=== PATIENT | female | born 1960 | race Caucasian/White ===

== ENCOUNTER 2021-11-15 19:41 | Emergency (ER) | payer OTHER ==
[~2021-11-15] VITALS: Ht 175.3 cm; Wt 135.0 kg
[2021-11-15] MEDS ORDERED: KETOROLAC TROMETH 30 MG/ML 1ML VIAL IV ONE (20:00)
[2021-11-15 20:25] LABS: Basophils # (auto) 0.1 10 ^3/uL (0-0.2); Eosinophils # (auto) 0.1 10 ^3/uL (0-0.8); Hemoglobin 10.6 g/dL (12.2-16.2); Lymphocytes # (auto) 1.5 10 ^3/uL (0.4-5.4); Mean Corpuscular Hgb Conc. 31.3 g/dL (32.0-36.0); Monocytes # (auto) 1.5 10 ^3/uL (0-1.3); Red Cell Distribution Width 16.8 % (11.8-14.3)
[2021-11-15 20:26] LABS: Basophils % (auto) 0.8 % (0.0-2.0); Lymphocytes % (auto) 11.7 % (10.0-50.0); Mean Corpuscular Hemoglobin 26.9 pg (28.0-32.0); Mean Corpuscular Volume 85.7 fL (80.0-100.0); Monocytes % (auto) 11.7 % (0.0-12.0); Neutrophils # (auto) 9.8 10 ^3/uL (1.6-8.6); Neutrophils % (auto) 74.8 % (37.0-80.0); Red Blood Cells 3.96 10^6/uL (4.0-5.20); White Blood Cell 13.1 10^3/uL (4.4-10.8)
[2021-11-15 20:40] LABS: INR 1.04 (0.9-1.15); Partial Thromboplastin Time 28.8 sec (24.6-33.4)
[2021-11-15 20:41] LABS: Albumin 2.2 g/dL (3.4-5.0); BUN/Creatinine Ratio 11.1; Magnesium 2.2 mg/dL (1.6-2.6); Potassium 5.5 mmol/L (3.5-5.1)
[2021-11-15 20:44] LABS: Bilirubin, Total 0.3 mg/dL (0.2-1.0); Total Protein 6.8 g/dL (6.4-8.2)
[2021-11-15] MEDS ORDERED: NAPROXEN 500 MG TAB PO SCH (22:00)
[2021-11-15 22:03] VITALS: BP 138/63
== END 2021-11-15 23:29 | disposition home or self-care (01) ==
LOC: ER 19:41 → EDBD 19:41 → ER 23:29
DX: R07.89 Other chest pain (principal); I10 Essential (primary) hypertension; E11.9 Type 2 diabetes mellitus without complications; I48.91 Unspecified atrial fibrillation; F17.210 Nicotine dependence, cigarettes, uncomplicated; Z90.89 Acquired absence of other organs
CPT/HCPCS: 36415; 71045; 80053; 83735; 83880; 84484; 85025; 85610; 85730; 93005; 96374; 99285; J1885

== ENCOUNTER 2021-11-17 19:00 | Emergency (ER) | payer OTHER ==
[2021-11-17 19:49] LABS: Basophils # (auto) 0.1 10 ^3/uL (0-0.2); Basophils % (auto) 0.7 % (0.0-2.0); Eosinophils # (auto) 0.2 10 ^3/uL (0-0.8); Eosinophils % (auto) 1.8 % (0.0-7.0); Hematocrit 31.7 % (36.0-46.0); Hemoglobin 10.2 g/dL (12.2-16.2); Lymphocytes % (auto) 16.5 % (10.0-50.0); Mean Corpuscular Hemoglobin 27.4 pg (28.0-32.0); Mean Corpuscular Hgb Conc. 32.2 g/dL (32.0-36.0); Mean Corpuscular Volume 85.2 fL (80.0-100.0); Monocytes # (auto) 1.2 10 ^3/uL (0-1.3); Monocytes % (auto) 9.9 % (0.0-12.0); Neutrophils # (auto) 8.4 10 ^3/uL (1.6-8.6); Neutrophils % (auto) 71.1 % (37.0-80.0); Red Blood Cells 3.72 10^6/uL (4.0-5.20); Red Cell Distribution Width 17.2 % (11.8-14.3); White Blood Cell 11.9 10^3/uL (4.4-10.8)
[2021-11-17 20:07] LABS: Calcium 8.4 mg/dL (8.5-10.1); Potassium 4.7 mmol/L (3.5-5.1)
[2021-11-17 20:16] LABS: BUN/Creatinine Ratio 13.7; Bilirubin, Total 0.3 mg/dL (0.2-1.0)
[2021-11-17] MEDS ORDERED: IOHEXOL 300 MG/ML 100ML BOTTLE IJ ONE (22:26)
[2021-11-18 08:27] VITALS: BP 146/62
== END 2021-11-18 08:36 | disposition short-term general hospital (02) ==
LOC: EDBD 19:00 → ER 19:00
DX: R07.89 Other chest pain (principal); I31.9 Disease of pericardium, unspecified; A04.71 Enterocolitis due to Clostridium difficile, recurrent; R16.0 Hepatomegaly, not elsewhere classified; K80.20 Calculus of gallbladder without cholecystitis without obstruction; R91.8 Other nonspecific abnormal finding of lung field; F17.210 Nicotine dependence, cigarettes, uncomplicated; E11.9 Type 2 diabetes mellitus without complications; I10 Essential (primary) hypertension; I48.91 Unspecified atrial fibrillation; Z90.710 Acquired absence of both cervix and uterus; Z90.89 Acquired absence of other organs
CPT/HCPCS: 36415; 71045; 74177; 80053; 82962; 83690; 83880; 84484; 85025; 93005; 99285; Q9967

== ENCOUNTER 2022-04-27 17:56 | Emergency (ER) | payer OTHER ==
[~2022-04-27] VITALS: Ht 175.3 cm; Wt 60.4 kg
[2022-04-27 20:38] LABS: Basophils # (auto) 0.1 10 ^3/uL (0-0.2); Basophils % (auto) 0.5 % (0.0-2.0); Eosinophils # (auto) 0.6 10 ^3/uL (0-0.8); Eosinophils % (auto) 4.1 % (0.0-7.0); Hematocrit 42.9 % (36.0-46.0); Hemoglobin 13.8 g/dL (12.2-16.2); Lymphocytes # (auto) 1.4 10 ^3/uL (0.4-5.4); Lymphocytes % (auto) 9.8 % (10.0-50.0); Mean Corpuscular Hemoglobin 28.1 pg (28.0-32.0); Mean Corpuscular Hgb Conc. 32.2 g/dL (32.0-36.0); Mean Corpuscular Volume 87.3 fL (80.0-100.0); Monocytes # (auto) 0.9 10 ^3/uL (0-1.3); Monocytes % (auto) 6.1 % (0.0-12.0); Neutrophils # (auto) 11.6 10 ^3/uL (1.6-8.6); Neutrophils % (auto) 79.5 % (37.0-80.0); Nucleated Red Blood Cells % 0.1 %; Red Blood Cells 4.91 10^6/uL (4.0-5.20); Red Cell Distribution Width 16.4 % (11.8-14.3); White Blood Cell 14.6 10^3/uL (4.4-10.8)
[2022-04-27 20:56] LABS: INR 1.02 (0.9-1.15)
[2022-04-27 21:01] LABS: Albumin 3.5 g/dL (3.4-5.0); Anion Gap 9 (5-15); Blood Urea Nitrogen 14 mg/dL (7-18); Calcium 8.5 mg/dL (8.5-10.1); Carbon Dioxide 27 mmol/L (21-32); Chloride 104 mmol/L (98-107); Glucose 78 mg/dL (74-106); Magnesium 2.3 mg/dL (1.6-2.6); Potassium 4.4 mmol/L (3.5-5.1); Sodium 140 mmol/L (136-145)
[2022-04-27 21:03] LABS: Alanine Aminotransferase 22 U/L (13-56); BUN/Creatinine Ratio 16.5; GFR African American 87 mL/min; GFR Non-African American 72 mL/min
[2022-04-27 21:09] LABS: Alkaline Phosphatase 94 U/L (45-117); Aspartate Aminotransferase 11 U/L (15-37); Bilirubin, Total 0.5 mg/dL (0.2-1.0); Total Protein 7.1 g/dL (6.4-8.2)
[2022-04-27] MEDS ORDERED: ALBUTEROL SULF 2.5 MG/0.5ML(0.5%) NEB SOLN NEB ONE (22:00)
[2022-04-28 03:26] LABS: Urine Bacteria FEW /hpf (None Seen); Urine Blood Negative /uL (Negative); Urine Mucus FEW (None Seen); Urine Specific Gravity 1.022 (1.001-1.035); Urine WBC 1 /hpf (0 - 5)
[2022-04-28] MEDS ORDERED: AZITHROMYCIN 500MG/ 250ML 250 ML IV ONE (04:15)
[2022-04-28] MEDS ORDERED: DexAMETHasone SOD PHOS 10MG/1ML VIAL INJ IV ONE (04:15)
[2022-04-28] MEDS ORDERED: LACTATED RINGER'S 1,000 ML IV ONE (04:15)
[2022-04-28] MEDS ORDERED: cefTRIAXone 1GM/50ML D5W 50 ML IV ONE (04:15)
[2022-04-28 12:01] VITALS: BP 150/63
== END 2022-04-28 12:50 | disposition short-term general hospital (02) ==
LOC: EDBD 17:56 → ER 18:02
DX: J18.9 Pneumonia, unspecified organism (principal); R53.1 Weakness; R06.02 Shortness of breath; R05.9 Cough, unspecified; D72.829 Elevated white blood cell count, unspecified; R09.02 Hypoxemia; I10 Essential (primary) hypertension; E11.9 Type 2 diabetes mellitus without complications; I48.91 Unspecified atrial fibrillation; F17.210 Nicotine dependence, cigarettes, uncomplicated; Z90.89 Acquired absence of other organs; Z90.710 Acquired absence of both cervix and uterus; Z20.822 Contact with and (suspected) exposure to COVID-19
CPT/HCPCS: 36415; 71045; 80053; 81001; 83735; 83880; 84484; 85025; 85610; 85730; 87426; 87804; 93005; 94640; 96365; 96366; 96367; 96375; 99285; J0456; J0696; J1100

== ENCOUNTER 2023-01-09 13:10 | Inpatient (IN) | payer OTHER ==
[2023-01-09] VITALS (8 sets, daily range): BP systolic 119–152; BP diastolic 68–86; PULSE 101–112; RESP 12–20; TEMP 98–98.2; O2SAT 100
[~2023-01-09] VITALS: Ht 175.3 cm; Wt 134.3 kg
[2023-01-09 13:59] LABS: Basophils # (auto) 0.1 10 ^3/uL (0-0.2); Lymphocytes # (auto) 2.2 10 ^3/uL (0.4-5.4); Neutrophils # (auto) 10.1 10 ^3/uL (1.6-8.6)
[2023-01-09 14:01] LABS: Basophils % (auto) 0.9 % (0.0-2.0); Eosinophils # (auto) 0.3 10 ^3/uL (0-0.8); Hematocrit 22.5 % (36.0-46.0); Lymphocytes % (auto) 15.9 % (10.0-50.0); Mean Corpuscular Hemoglobin 25.3 pg (28.0-32.0); Mean Corpuscular Hgb Conc. 31.2 g/dL (32.0-36.0); Mean Corpuscular Volume 80.9 fL (80.0-100.0); Monocytes # (auto) 0.9 10 ^3/uL (0-1.3); Monocytes % (auto) 6.7 % (0.0-12.0); Neutrophils % (auto) 74.5 % (37.0-80.0); Nucleated Red Blood Cells % 0.1 %; Red Blood Cells 2.78 10^6/uL (4.0-5.20); White Blood Cell 13.6 10^3/uL (4.4-10.8)
[2023-01-09 14:14] LABS: INR 1.89 (0.9-1.15)
[2023-01-09 14:46] LABS: Alanine Aminotransferase 10 U/L (7-40); Albumin 3.4 g/dL (3.2-4.8); Alkaline Phosphatase 61 U/L (46-116); Anion Gap 7.3 (5-15); Aspartate Aminotransferase < 8 U/L (13-40); BUN/Creatinine Ratio 31.4 (10.0-20.0); Bilirubin, Total 0.3 mg/dL (0.2-1.0); Blood Urea Nitrogen 27 mg/dL (9-23); Calcium 8.1 mg/dL (8.5-10.1); Carbon Dioxide 22.7 mmol/L (20-30); Chloride 107 mmol/L (98-107); Glucose 209 mg/dL (74-106); Potassium 4.2 mmol/L (3.5-5.1); Sodium 137 mmol/L (136-145)
[2023-01-09 14:47] LABS: Total Protein 5.1 g/dL (5.7-8.2)
[2023-01-09] MEDS ORDERED: PANTOPRAZOLE 80 MG in SODIUM CHL 0.9% 100 ML IV ONE (15:15)
[2023-01-09] MEDS ORDERED: OCTREOTIDE ACETATE 100 MCG in SODIUM CHL 0.9% 50 ML IV ONE (15:15)
[2023-01-09] MEDS ORDERED: PANTOPRAZOLE 40mg/50ML NS AE 50 ML IV ONE (15:15)
[2023-01-09] MEDS ORDERED: DABI150C5 PO (16:00)
[2023-01-09] MEDS ORDERED: PANTOPRAZOLE 40mg/50ML NS AE 50 ML IV SCH (16:00)
[2023-01-09] MEDS ORDERED: ACETAMINOPHEN 325 MG TAB PO PRN (16:00)
[2023-01-09] MEDS ORDERED: SEMA4INJ SC (16:00)
[2023-01-09] MEDS ORDERED: cefTRIAXone 1GM/50ML D5W 50 ML IV ONE (16:00)
[2023-01-09] MEDS ORDERED: ROSU1TAB14 PO (16:00)
[2023-01-09] MEDS ORDERED: HYDR25TA87 PO (16:00)
[2023-01-09] MEDS ORDERED: OCTREOTIDE ACETATE 500 MCG in SODIUM CHL 0.9% 99 ML IV SCH (16:00)
[2023-01-09] MEDS ORDERED: MORPHINE SULFATE INJ 2 MG/ml SYRG IV PRN (16:00)
[2023-01-09] MEDS ORDERED: INSREG3 (16:00)
[2023-01-09] MEDS ORDERED: LOSA50TA46 PO (16:00)
[2023-01-09] MEDS ORDERED: METH5TAB98 PO (16:00)
[2023-01-09] MEDS ORDERED: METF-370 PO (16:00)
[2023-01-09] MEDS ORDERED: NITROGLYCERIN 0.4 MG SL TAB SL PRN (16:00)
[2023-01-09] MEDS ORDERED: DILT-29 PO (16:00)
[2023-01-09 16:24] LABS: Triglycerides 104 mg/dL (< 150)
[2023-01-09 16:25] LABS: LDL Cholesterol 35 mg/dL (< 100)
[2023-01-09 16:26] LABS: Cholesterol 91 mg/dL (< 200); HDL Cholesterol 32 mg/dL (40-59)
[2023-01-09] MEDS: OCTREOTIDE ACETATE 500 MCG in SODIUM CHL 0.9% 99 ML IV SCH (16:28)
[2023-01-09] MEDS: SODIUM CHLORIDE 0.9% 1,000 ML IV SCH (16:34)
[2023-01-09] MEDS ORDERED: ONDANSETRON HCL 4 MG/2 ML VIAL ONE (16:41)
[2023-01-09] MEDS ORDERED: ONDANSETRON HCL 4 MG/2 ML VIAL IV ONE (16:45)
[2023-01-09] MEDS: metFORMIN HYDROCHLORIDE 500 MG TAB PO SCH (18:00)
[2023-01-09 21:49] LABS: COVID19 ANTIGEN SOFIA FIA NEGATIVE (NEGATIVE)
[2023-01-09] MEDS: LOSARTAN POTASSIUM 50 MG TAB PO SCH (23:03)
[2023-01-09] MEDS: ATORVASTATIN 20 MG TAB PO SCH (23:03)
[2023-01-10] VITALS (8 sets, daily range): BP systolic 123–150; BP diastolic 65–80; PULSE 77–117; RESP 16–22; TEMP 97.7–98.2; O2SAT 91–100
[2023-01-10 01:04] LABS: Basophils # (auto) 0.1 10 ^3/uL (0-0.2); Basophils % (auto) 0.7 % (0.0-2.0); Eosinophils # (auto) 0.3 10 ^3/uL (0-0.8); Lymphocytes # (auto) 3.1 10 ^3/uL (0.4-5.4); Nucleated Red Blood Cells % 0.1 %; Red Cell Distribution Width 17.3 % (11.8-14.3)
[2023-01-10 01:06] LABS: Eosinophils % (auto) 2.1 % (0.0-7.0); Hematocrit 25.5 % (36.0-46.0); Mean Corpuscular Hemoglobin 25.5 pg (28.0-32.0); Mean Corpuscular Hgb Conc. 31.3 g/dL (32.0-36.0); Mean Corpuscular Volume 81.4 fL (80.0-100.0); Monocytes # (auto) 1.1 10 ^3/uL (0-1.3); Monocytes % (auto) 7.7 % (0.0-12.0); Neutrophils # (auto) 9.5 10 ^3/uL (1.6-8.6); Neutrophils % (auto) 67.5 % (37.0-80.0); Red Blood Cells 3.13 10^6/uL (4.0-5.20)
[2023-01-10] MEDS: OCTREOTIDE ACETATE 500 MCG in SODIUM CHL 0.9% 99 ML IV SCH ×3 (01:15→21:15)
[2023-01-10] MEDS: SODIUM CHLORIDE 0.9% 1,000 ML IV SCH (02:27)
[2023-01-10] MEDS ORDERED: DEXTROSE (50%) 50ML SYRG IV PRN (03:00)
[2023-01-10] MEDS ORDERED: OCTREOTIDE ACETATE 500 MCG/ML VL ONE (03:13)
[2023-01-10 06:02] LABS: Basophils # (auto) 0.1 10 ^3/uL (0-0.2); Basophils % (auto) 0.7 % (0.0-2.0); Eosinophils # (auto) 0.4 10 ^3/uL (0-0.8); Eosinophils % (auto) 3.4 % (0.0-7.0); Hematocrit 24.8 % (36.0-46.0); Hemoglobin 7.7 g/dL (12.2-16.2); Lymphocytes # (auto) 2.6 10 ^3/uL (0.4-5.4); Lymphocytes % (auto) 21.9 % (10.0-50.0); Mean Corpuscular Hemoglobin 24.6 pg (28.0-32.0); Mean Corpuscular Hgb Conc. 31.1 g/dL (32.0-36.0); Mean Corpuscular Volume 79.1 fL (80.0-100.0); Monocytes % (auto) 8.5 % (0.0-12.0); Neutrophils # (auto) 7.9 10 ^3/uL (1.6-8.6); Neutrophils % (auto) 65.5 % (37.0-80.0); Nucleated Red Blood Cells % 0.2 %; Red Blood Cells 3.14 10^6/uL (4.0-5.20); Red Cell Distribution Width 17.8 % (11.8-14.3)
[2023-01-10] MEDS: metFORMIN HYDROCHLORIDE 500 MG TAB PO SCH ×2 (06:40→17:31)
[2023-01-10] MEDS: ACCU-CHEK COMFORT CURVE STRIP VI SCH ×4 (06:40→21:31)
[2023-01-10] MEDS ORDERED: InsuLIN REG 1unit/0.01ml Soln (100units/ml) SC SCH ×2 (07:00→22:00)
[2023-01-10 08:38] LABS: Albumin 3.4 g/dL (3.2-4.8); Alkaline Phosphatase 57 U/L (46-116); Anion Gap 6.5 (5-15); Aspartate Aminotransferase 9 U/L (13-40); BUN/Creatinine Ratio 23.3 (10.0-20.0); Bilirubin, Total 0.4 mg/dL (0.2-1.0); Blood Urea Nitrogen 20 mg/dL (9-23); Calcium 8.2 mg/dL (8.5-10.1); Carbon Dioxide 24.5 mmol/L (20-30); Chloride 107 mmol/L (98-107); Glucose 161 mg/dL (74-106); Potassium 4.4 mmol/L (3.5-5.1); Sodium 138 mmol/L (136-145); Total Protein 5.5 g/dL (5.7-8.2)
[2023-01-10 08:40] LABS: Alanine Aminotransferase < 9 U/L (7-40)
[2023-01-10] MEDS: cefTRIAXone 1GM/50ML D5W 50 ML IV SCH (09:07)
[2023-01-10] MEDS ORDERED: methIMAzole 5 MG TAB PO SCH (10:00)
[2023-01-10] MEDS: dilTIAZem 120MG ER CAP PO SCH (10:42)
[2023-01-10] MEDS: LOSARTAN POTASSIUM 50 MG TAB PO SCH ×2 (10:43→21:16)
[2023-01-10 12:14] LABS: Basophils # (auto) 0 10 ^3/uL (0-0.2); Basophils % (auto) 0.4 % (0.0-2.0); Eosinophils # (auto) 0.4 10 ^3/uL (0-0.8); Eosinophils % (auto) 3.4 % (0.0-7.0); Hemoglobin 8.4 g/dL (12.2-16.2); Lymphocytes # (auto) 1.8 10 ^3/uL (0.4-5.4); Lymphocytes % (auto) 15.4 % (10.0-50.0); Mean Corpuscular Hemoglobin 24.8 pg (28.0-32.0); Mean Corpuscular Volume 82.9 fL (80.0-100.0); Monocytes % (auto) 8.2 % (0.0-12.0); Neutrophils # (auto) 8.6 10 ^3/uL (1.6-8.6); Neutrophils % (auto) 72.6 % (37.0-80.0); Red Blood Cells 3.38 10^6/uL (4.0-5.20); Red Cell Distribution Width 17.6 % (11.8-14.3); White Blood Cell 11.8 10^3/uL (4.4-10.8)
[2023-01-10] MEDS: InsuLIN REG 1unit/0.01ml Soln (100units/ml) SC SCH ×3 (13:37→21:29)
[2023-01-10 18:29] LABS: Basophils # (auto) 0.1 10 ^3/uL (0-0.2); Basophils % (auto) 0.6 % (0.0-2.0); Eosinophils # (auto) 0.4 10 ^3/uL (0-0.8); Hematocrit 24.8 % (36.0-46.0); Hemoglobin 7.8 g/dL (12.2-16.2); Lymphocytes # (auto) 1.9 10 ^3/uL (0.4-5.4); Monocytes # (auto) 0.9 10 ^3/uL (0-1.3); Neutrophils # (auto) 8.3 10 ^3/uL (1.6-8.6); White Blood Cell 11.6 10^3/uL (4.4-10.8)
[2023-01-10 18:31] LABS: Eosinophils % (auto) 3.2 % (0.0-7.0); Lymphocytes % (auto) 16.7 % (10.0-50.0); Mean Corpuscular Hemoglobin 25.3 pg (28.0-32.0); Mean Corpuscular Hgb Conc. 31.2 g/dL (32.0-36.0); Monocytes % (auto) 7.8 % (0.0-12.0); Neutrophils % (auto) 71.7 % (37.0-80.0); Nucleated Red Blood Cells % 0.2 %; Red Blood Cells 3.07 10^6/uL (4.0-5.20); Red Cell Distribution Width 17.1 % (11.8-14.3)
[2023-01-10] MEDS: ATORVASTATIN 20 MG TAB PO SCH (21:16)
[2023-01-11] VITALS (10 sets, daily range): BP systolic 96–165; BP diastolic 45–78; PULSE 99–110; RESP 16–22; TEMP 97.5–98.5; O2SAT 95–100
[2023-01-11] MEDS: SODIUM CHLORIDE 0.9% 1,000 ML IV SCH ×2 (02:40→18:00)
[2023-01-11] MEDS: metFORMIN HYDROCHLORIDE 500 MG TAB PO SCH (05:51)
[2023-01-11] MEDS: ACCU-CHEK COMFORT CURVE STRIP VI SCH ×4 (05:52→21:43)
[2023-01-11] MEDS: InsuLIN REG 1unit/0.01ml Soln (100units/ml) SC SCH ×4 (05:56→21:42)
[2023-01-11 06:03] LABS: Basophils # (auto) 0.1 10 ^3/uL (0-0.2); Hemoglobin 7.3 g/dL (12.2-16.2); Monocytes # (auto) 0.8 10 ^3/uL (0-1.3)
[2023-01-11 06:06] LABS: Basophils % (auto) 0.6 % (0.0-2.0); Eosinophils # (auto) 0.4 10 ^3/uL (0-0.8); Hematocrit 22.8 % (36.0-46.0); Lymphocytes # (auto) 1.6 10 ^3/uL (0.4-5.4); Lymphocytes % (auto) 16.2 % (10.0-50.0); Mean Corpuscular Hemoglobin 25.4 pg (28.0-32.0); Mean Corpuscular Hgb Conc. 31.8 g/dL (32.0-36.0); Mean Corpuscular Volume 79.9 fL (80.0-100.0); Monocytes % (auto) 8.3 % (0.0-12.0); Neutrophils # (auto) 7.2 10 ^3/uL (1.6-8.6); Neutrophils % (auto) 70.9 % (37.0-80.0); Red Blood Cells 2.86 10^6/uL (4.0-5.20); Red Cell Distribution Width 16.9 % (11.8-14.3); White Blood Cell 10.1 10^3/uL (4.4-10.8)
[2023-01-11] MEDS: OCTREOTIDE ACETATE 500 MCG in SODIUM CHL 0.9% 99 ML IV SCH (08:28)
[2023-01-11] MEDS: cefTRIAXone 1GM/50ML D5W 50 ML IV SCH (08:31)
[2023-01-11 10:06] LABS: Anion Gap 6.6 (5-15); Carbon Dioxide 27.4 mmol/L (20-30); Chloride 105 mmol/L (98-107); Potassium 4.5 mmol/L (3.5-5.1); Sodium 139 mmol/L (136-145)
[2023-01-11 10:08] LABS: Calcium 8.4 mg/dL (8.5-10.1)
[2023-01-11 10:12] LABS: BUN/Creatinine Ratio 21.1 (10.0-20.0); Blood Urea Nitrogen 16 mg/dL (9-23); Glucose 202 mg/dL (74-106)
[2023-01-11] MEDS: dilTIAZem 120MG ER CAP PO SCH (10:23)
[2023-01-11] MEDS: LOSARTAN POTASSIUM 50 MG TAB PO SCH (10:24)
[2023-01-11] MEDS ORDERED: IRON SUCROSE COMPLEX 200 MG in SODIUM CHL 0.9% 100 ML IV SCH (12:00)
[2023-01-11] MEDS ORDERED: LABETALOL HCL 5 MG/ML 4ML SYRINGE IV PRN (12:15)
[2023-01-11] MEDS: SODIUM FERR GLUC 62.5MG/5ML 125 MG in SODIUM CHL 0.9% 100 ML IV SCH (12:45)
[2023-01-11] MEDS: metroNIDAZOLE 500MG/100ML 100 ML IV SCH ×2 (14:00→21:26)
[2023-01-11] MEDS ORDERED: PROPOFOL 10 MG/ML 20 ML IV ONE (14:41)
[2023-01-11 16:37] LABS: Urine Bacteria NONE SEEN /hpf (None Seen); Urine Blood Negative /uL (Negative); Urine Clarity Clear (Clear); Urine Color Colorless (Yellow); Urine Protein, UAD Negative (Negative); Urine Specific Gravity 1.016 (1.001-1.035); Urine Urobilinogen Normal (Negative); Urine WBC <1 /hpf (0 - 5)
[2023-01-11 16:41] LABS: Basophils # (auto) 0.1 10 ^3/uL (0-0.2); Hemoglobin 7.2 g/dL (12.2-16.2); Monocytes # (auto) 0.9 10 ^3/uL (0-1.3); Nucleated Red Blood Cells % 0.1 %; White Blood Cell 10.6 10^3/uL (4.4-10.8)
[2023-01-11 16:43] LABS: Basophils % (auto) 0.8 % (0.0-2.0); Eosinophils # (auto) 0.3 10 ^3/uL (0-0.8); Lymphocytes # (auto) 1.6 10 ^3/uL (0.4-5.4); Lymphocytes % (auto) 15.5 % (10.0-50.0); Mean Corpuscular Hemoglobin 26.3 pg (28.0-32.0); Mean Corpuscular Hgb Conc. 32.7 g/dL (32.0-36.0); Mean Corpuscular Volume 80.7 fL (80.0-100.0); Monocytes % (auto) 8.6 % (0.0-12.0); Neutrophils # (auto) 7.7 10 ^3/uL (1.6-8.6); Neutrophils % (auto) 72.1 % (37.0-80.0); Red Blood Cells 2.72 10^6/uL (4.0-5.20); Red Cell Distribution Width 17.4 % (11.8-14.3)
[2023-01-11 17:23] LABS: T3 Total 0.79 ng/mL (0.60-1.81)
[2023-01-11 17:24] LABS: Free T4 (Free Thyroxine) 0.93 ng/dL (0.89-1.76)
[2023-01-11 21:05] LABS: Hemoglobin 6.6 g/dL (12.2-16.2)
[2023-01-11] MEDS: ATORVASTATIN 20 MG TAB PO SCH (21:26)
[2023-01-11] MEDS: PANTOPRAZOLE 40 MG/10 ML VIAL INJ IV SCH (21:26)
[2023-01-12] VITALS (8 sets, daily range): BP systolic 139–157; BP diastolic 71–82; PULSE 97–123; RESP 17–20; TEMP 97.4–98.2; O2SAT 94–98
[2023-01-12] MEDS: metroNIDAZOLE 500MG/100ML 100 ML IV SCH ×3 (05:26→22:15)
[2023-01-12] MEDS: InsuLIN REG 1unit/0.01ml Soln (100units/ml) SC SCH ×4 (06:01→22:13)
[2023-01-12] MEDS: ACCU-CHEK COMFORT CURVE STRIP VI SCH ×4 (06:02→22:12)
[2023-01-12 06:12] LABS: Eosinophils # (auto) 0.3 10 ^3/uL (0-0.8); Lymphocytes # (auto) 1.5 10 ^3/uL (0.4-5.4); Monocytes # (auto) 0.8 10 ^3/uL (0-1.3); Neutrophils # (auto) 6.2 10 ^3/uL (1.6-8.6); White Blood Cell 8.8 10^3/uL (4.4-10.8)
[2023-01-12 06:14] LABS: Basophils # (auto) 0.1 10 ^3/uL (0-0.2); Basophils % (auto) 0.6 % (0.0-2.0); Eosinophils % (auto) 3.6 % (0.0-7.0); Hematocrit 23.9 % (36.0-46.0); Hemoglobin 7.9 g/dL (12.2-16.2); Lymphocytes % (auto) 16.5 % (10.0-50.0); Mean Corpuscular Hemoglobin 27.4 pg (28.0-32.0); Mean Corpuscular Hgb Conc. 33.2 g/dL (32.0-36.0); Mean Corpuscular Volume 82.6 fL (80.0-100.0); Monocytes % (auto) 8.8 % (0.0-12.0); Neutrophils % (auto) 70.5 % (37.0-80.0); Nucleated Red Blood Cells % 0.2 %; Red Blood Cells 2.89 10^6/uL (4.0-5.20)
[2023-01-12 06:27] LABS: Albumin 3.5 g/dL (3.2-4.8); Alkaline Phosphatase 63 U/L (46-116); BUN/Creatinine Ratio 15.1 (10.0-20.0); Bilirubin, Total 0.5 mg/dL (0.2-1.0); Blood Urea Nitrogen 13 mg/dL (9-23); Calcium 8.3 mg/dL (8.5-10.1); Chloride 105 mmol/L (98-107); Glucose 210 mg/dL (74-106); Potassium 4.1 mmol/L (3.5-5.1); Sodium 138 mmol/L (136-145); Total Protein 5.6 g/dL (5.7-8.2)
[2023-01-12 06:36] LABS: Alanine Aminotransferase < 9 U/L (7-40); Aspartate Aminotransferase < 8 U/L (13-40)
[2023-01-12 06:54] LABS: Anion Gap 6.3 (5-15); Carbon Dioxide 26.7 mmol/L (20-30)
[2023-01-12] MEDS: cefTRIAXone 1GM/50ML D5W 50 ML IV SCH (09:12)
[2023-01-12] MEDS: DOCUSATE SOD 100 MG CAP PO SCH ×3 (09:12→22:15)
[2023-01-12] MEDS: dilTIAZem 120MG ER CAP PO SCH (09:13)
[2023-01-12] MEDS: LOSARTAN POTASSIUM 50 MG TAB PO SCH (09:13)
[2023-01-12] MEDS: PANTOPRAZOLE 40 MG/10 ML VIAL INJ IV SCH ×2 (09:13→22:15)
[2023-01-12] MEDS: SODIUM CHLORIDE 0.9% 1,000 ML IV SCH (09:15)
[2023-01-12] MEDS: SODIUM FERR GLUC 62.5MG/5ML 125 MG in SODIUM CHL 0.9% 100 ML IV SCH (12:45)
[2023-01-12] MEDS: ATORVASTATIN 20 MG TAB PO SCH (22:15)
[2023-01-13] VITALS (8 sets, daily range): BP systolic 133–147; BP diastolic 47–89; PULSE 105–133; RESP 19–22; TEMP 97.6–98.4; O2SAT 95–99
[2023-01-13] MEDS: SODIUM CHLORIDE 0.9% 1,000 ML IV SCH ×2 (03:20→20:00)
[2023-01-13] MEDS: metroNIDAZOLE 500MG/100ML 100 ML IV SCH ×3 (06:39→21:59)
[2023-01-13] MEDS: InsuLIN REG 1unit/0.01ml Soln (100units/ml) SC SCH ×4 (06:43→22:14)
[2023-01-13] MEDS: ACCU-CHEK COMFORT CURVE STRIP VI SCH ×4 (06:43→22:08)
[2023-01-13 06:59] LABS: Basophils # (auto) 0.1 10 ^3/uL (0-0.2); Basophils % (auto) 0.9 % (0.0-2.0); Eosinophils # (auto) 0.3 10 ^3/uL (0-0.8); Eosinophils % (auto) 3.4 % (0.0-7.0); Hematocrit 25.3 % (36.0-46.0); Hemoglobin 8.3 g/dL (12.2-16.2); Lymphocytes # (auto) 1.4 10 ^3/uL (0.4-5.4); Lymphocytes % (auto) 15.6 % (10.0-50.0); Mean Corpuscular Hgb Conc. 32.8 g/dL (32.0-36.0); Mean Corpuscular Volume 82.1 fL (80.0-100.0); Monocytes # (auto) 0.8 10 ^3/uL (0-1.3); Neutrophils # (auto) 6.5 10 ^3/uL (1.6-8.6); Neutrophils % (auto) 71.1 % (37.0-80.0); Nucleated Red Blood Cells % 0.1 %; Red Blood Cells 3.08 10^6/uL (4.0-5.20); Red Cell Distribution Width 16.9 % (11.8-14.3); White Blood Cell 9.2 10^3/uL (4.4-10.8)
[2023-01-13 07:18] LABS: Albumin 3.6 g/dL (3.2-4.8); Alkaline Phosphatase 67 U/L (46-116); Anion Gap 4.6 (5-15); Aspartate Aminotransferase < 8 U/L (13-40); BUN/Creatinine Ratio 12.5 (10.0-20.0); Bilirubin, Total 0.5 mg/dL (0.2-1.0); Blood Urea Nitrogen 10 mg/dL (9-23); Calcium 8.4 mg/dL (8.5-10.1); Carbon Dioxide 28.4 mmol/L (20-30); Chloride 106 mmol/L (98-107); Glucose 236 mg/dL (74-106); Potassium 3.6 mmol/L (3.5-5.1); Sodium 139 mmol/L (136-145); Total Protein 5.9 g/dL (5.7-8.2)
[2023-01-13 07:37] LABS: Alanine Aminotransferase < 9 U/L (7-40)
[2023-01-13] MEDS: cefTRIAXone 1GM/50ML D5W 50 ML IV SCH (09:07)
[2023-01-13] MEDS: PANTOPRAZOLE 40 MG/10 ML VIAL INJ IV SCH ×2 (09:15→21:59)
[2023-01-13] MEDS: dilTIAZem 120MG ER CAP PO SCH (09:15)
[2023-01-13] MEDS: DOCUSATE SOD 100 MG CAP PO SCH ×2 (09:16→21:59)
[2023-01-13] MEDS: LOSARTAN POTASSIUM 50 MG TAB PO SCH (09:16)
[2023-01-13] MEDS: SODIUM FERR GLUC 62.5MG/5ML 125 MG in SODIUM CHL 0.9% 100 ML IV SCH (12:33)
[2023-01-13] MEDS: ATORVASTATIN 20 MG TAB PO SCH (21:59)
[2023-01-13] MEDS ORDERED: INSULIN LANTUS (GLARGINE) 1 /0.01ml (100units/ml) SC SCH (22:00)
== END 2023-01-13 22:30 | disposition short-term general hospital (02) | DRG 378 ==
LOC: EDBD 13:10 → ER 13:10 → TELE 15:58 → TELE-WESTW 21:23
PROVIDERS: ADMIT Internal Medicine
PROC: 30233N1 Transfusion of Nonautologous Red Blood Cells into Peripheral Vein, Percutaneous Approach (ICD-10-PCS; principal; 2023-01-09)
PROC: 30233K1 Transfusion of Nonautologous Frozen Plasma into Peripheral Vein, Percutaneous Approach (ICD-10-PCS; 2023-01-11)
PROC: 0DB98ZX Excision of Duodenum, Via Natural or Artificial Opening Endoscopic, Diagnostic (ICD-10-PCS; 2023-01-11)
PROC: 0DB68ZX Excision of Stomach, Via Natural or Artificial Opening Endoscopic, Diagnostic (ICD-10-PCS; 2023-01-11)
PROC: 5A09357 Assistance with Respiratory Ventilation, Less than 24 Consecutive Hours, Continuous Positive Airway Pressure (ICD-10-PCS; 2023-01-11)
DX: K29.71 Gastritis, unspecified, with bleeding (principal); I48.20 Chronic atrial fibrillation, unspecified; Z68.41 Body mass index [BMI] 40.0-44.9, adult; I10 Essential (primary) hypertension; Z20.822 Contact with and (suspected) exposure to COVID-19; E66.01 Morbid (severe) obesity due to excess calories; G47.33 Obstructive sleep apnea (adult) (pediatric); D50.0 Iron deficiency anemia secondary to blood loss (chronic); E11.9 Type 2 diabetes mellitus without complications; F17.210 Nicotine dependence, cigarettes, uncomplicated; Z79.01 Long term (current) use of anticoagulants; Z79.4 Long term (current) use of insulin; Z83.3 Family history of diabetes mellitus; Z85.42 Personal history of malignant neoplasm of other parts of uterus; Z90.710 Acquired absence of both cervix and uterus; Z90.89 Acquired absence of other organs
CPT/HCPCS: 36415; 70450; 71045; 74176; 80048; 80053; 80061; 81001; 82378; 82962; 83036; 83880; 84439; 84443; 84480; 84484; 85014; 85018; 85025; 85379; 85384; 85610; 86850; 86900; 86901; 86920; 87040; 87426; 93005; 93306; 94660; C9113; G0378; J0696; J1756; J1815; J2405; J2704; J3490

== ENCOUNTER 2023-07-09 05:31 | Emergency (ER) | payer OTHER ==
[~2023-07-09] VITALS: Ht 172.7 cm; Wt 140.0 kg
[~2023-07-09 05:31] MED LIST: DABI150C5 PO; DILT-29 PO; HYDR25TA87 PO; INSREG3; LOSA50TA46 PO; METF-370 PO; METH5TAB98 PO; ROSU1TAB14 PO; SEMA4INJ SC
[2023-07-09 06:48] LABS: Basophils # (auto) 0 10 ^3/uL (0-0.2); Basophils % (auto) 0.3 % (0.0-2.0); Eosinophils # (auto) 0 10 ^3/uL (0-0.8); Eosinophils % (auto) 0.1 % (0.0-7.0); Hematocrit 37.4 % (36.0-46.0); Hemoglobin 11.9 g/dL (12.2-16.2); Lymphocytes # (auto) 0.6 10 ^3/uL (0.4-5.4); Mean Corpuscular Hemoglobin 27.3 pg (28.0-32.0); Mean Corpuscular Volume 85.5 fL (80.0-100.0); Monocytes # (auto) 0.9 10 ^3/uL (0-1.3); Monocytes % (auto) 6.7 % (0.0-12.0); Neutrophils # (auto) 12.3 10 ^3/uL (1.6-8.6); Neutrophils % (auto) 88.9 % (37.0-80.0); Nucleated Red Blood Cells % 0.1 %; Red Blood Cells 4.37 10^6/uL (4.0-5.20); Red Cell Distribution Width 17.4 % (11.8-14.3); White Blood Cell 13.9 10^3/uL (4.4-10.8)
[2023-07-09 06:58] LABS: INR 1.19 (0.9-1.15); Partial Thromboplastin Time 36.7 SEC (24.5-34.5); Prothrombin Time 12.4 sec (9.3-11.8)
[2023-07-09 07:02] LABS: Alanine Aminotransferase 38 U/L (7-40); Albumin 4.2 g/dL (3.2-4.8); Alkaline Phosphatase 166 U/L (46-116); Anion Gap 6 (5-15); Aspartate Aminotransferase 50 U/L (13-40); BUN/Creatinine Ratio 14.4 (10.0-20.0); Bilirubin, Total 0.7 mg/dL (0.2-1.0); Blood Urea Nitrogen 15 mg/dL (9-23); Calcium 8.7 mg/dL (8.5-10.1); Carbon Dioxide 27 mmol/L (20-30); Chloride 100 mmol/L (98-107); Glucose 227 mg/dL (74-106); Sodium 133 mmol/L (136-145); Total Protein 6.8 g/dL (5.7-8.2)
[2023-07-09 07:35] VITALS: PULSE 111; RESP 33; O2SAT 98
[2023-07-09 07:38] LABS: COVID19 ANTIGEN SOFIA FIA NEGATIVE (NEGATIVE); Rapid Influenza A Negative (Negative); Rapid Influenza B Negative (Negative)
[2023-07-09] MEDS: dilTIAZem 25 MG/5 ML VIAL IV ONE (09:01)
[2023-07-09 10:04] VITALS: BP 126/72; PULSE 101; RESP 37; TEMP 99; O2SAT 98
== END 2023-07-09 08:23 | disposition short-term general hospital (02) ==
LOC: ER 05:31 → EDBD 05:31 → ER 08:23
DX: I48.20 Chronic atrial fibrillation, unspecified (principal); R55 Syncope and collapse; I10 Essential (primary) hypertension; E11.9 Type 2 diabetes mellitus without complications; F17.210 Nicotine dependence, cigarettes, uncomplicated; Z85.9 Personal history of malignant neoplasm, unspecified; Z98.890 Other specified postprocedural states; Z79.899 Other long term (current) drug therapy; Z20.822 Contact with and (suspected) exposure to COVID-19
CPT/HCPCS: 36415; 70450; 71045; 72192; 80053; 82962; 83605; 85025; 85610; 85730; 87040; 87426; 87804; 93005; 96374